=== PATIENT | female | born 1985 | race Hispanic/Latino ===

== ENCOUNTER 2021-05-13 07:21 | Inpatient (IN) | payer OTHER ==
[2021-05-06 09:42] LABS: BASOPHILS % (AUTO) 0.3 % (0.0-5.0); EOSINOPHILS % (AUTO) 1.3 % (0.0-8.0); HEMATOCRIT 40.3 % (36-48); LYMPHOCYTES % (AUTO) 29.7 % (21.0-51.0); MEAN CORPUSCULAR HEMOGLOBIN 29.2 pg (27.0-33.0); MEAN CORPUSCULAR VOLUME 91.2 fL (79-99); MONOCYTES % (AUTO) 7.9 % (3.0-13.0); NEUTROPHILS % (AUTO) 60.6 % (40.0-77.0); PLATELET COUNT (AUTO) 285 K/uL (130-400); RED BLOOD CELL COUNT(AUTO) 4.42 MIL/uL (4.00-5.50); RED CELL DISTRIBUTION WIDTH 12.9 % (11.0-15.5); WHITE BLOOD COUNT (AUTO) 6.1 K/uL (4.8-10.8)
[2021-05-06 10:12] LABS: CREATININE 0.7 mg/dL (0.5-1.5); POTASSIUM 3.9 mmol/L (3.5-5.1)
[2021-05-12 15:09] VITALS: BP 135/67
[~2021-05-13] VITALS: Ht 167.6 cm; Wt 109.4 kg
[2021-05-13] VITALS (24 sets, daily range): BP systolic 112–162; BP diastolic 62–88
[2021-05-13] MEDS ORDERED: LACTATED RINGERS 1000ML 1,000 ML IV ONE (07:53)
[2021-05-13] MEDS: CEFAZOLIN SODIUM 1 GM VIAL IVP SCH ×2 (08:00→08:40)
[2021-05-13] MEDS ORDERED: BUPIVACAINE/PF 0.5% 30ML VIAL ONE (08:04)
[2021-05-13] MEDS ORDERED: MIDAZOLAM HCL 1 MG/ML 2ML VIAL ONE (08:09)
[2021-05-13] MEDS ORDERED: LIDOCAINE HCL MPF 1% 5ML VIAL ONE (08:23)
[2021-05-13] MEDS ORDERED: PROPOFOL 10 MG/ML 20ML VIAL IV ONE (08:23)
[2021-05-13] MEDS ORDERED: ROCURONIUM 10MG/1ML SYR 10 MG/ML ML ONE (08:24)
[2021-05-13] MEDS ORDERED: FENTANYL CITRATE PF 50 MCG/1 ML 2ML VIAL ONE (08:24)
[2021-05-13] MEDS ORDERED: MORPHINE 5 MG/ML VIAL (5MG OR GREATER DOSE) IVP PRN (10:00)
[2021-05-13] MEDS ORDERED: METOCLOPRAMIDE 10 MG/2 ML VIAL ONE ×2 (10:13→10:51)
[2021-05-13] MEDS ORDERED: DEXAMETHASONE SOD PHOSPHATE 10MG/ML 1ML VIAL ONE (10:13)
[2021-05-13] MEDS ORDERED: ONDANSETRON 4MG INJ ONE ×2 (10:14→10:42)
[2021-05-13] MEDS ORDERED: MEPERIDINE-PF 25 MG/ML SYG ONE ×2 (10:14→10:53)
[2021-05-13] MEDS: MORPHINE 2 MG SYG IVP PRN ×2 (12:29→17:23)
[2021-05-13] MEDS: ONDANSETRON 4MG INJ IVP PRN ×2 (12:34→17:27)
[2021-05-13] MEDS: LACTATED RINGERS 1000ML 1,000 ML IV SCH ×2 (12:41→20:53)
[2021-05-13] MEDS: KETOROLAC 30MG VIAL (30MG/ML) IM PRN ×2 (15:15→20:59)
[2021-05-13] MEDS: FAMOTIDINE 20MG VIAL IV SCH (20:54)
[2021-05-13] MEDS: ENOXAPARIN SODIUM 30 MG/0.3 ML SQ SCH (21:03)
[2021-05-14] MEDS: ONDANSETRON 4MG INJ IVP PRN ×2 (01:31→09:16)
[2021-05-14] MEDS: MORPHINE 2 MG SYG IVP PRN (01:46)
[2021-05-14 02:57] VITALS: BP 127/87
[2021-05-14] MEDS: LACTATED RINGERS 1000ML 1,000 ML IV SCH ×3 (04:26→21:12)
[2021-05-14] MEDS: KETOROLAC 30MG VIAL (30MG/ML) IM PRN ×3 (04:29→20:49)
[2021-05-14 04:44] LABS: BASOPHILS % (AUTO) 0.1 % (0.0-5.0); HEMATOCRIT 39.7 % (36-48); LYMPHOCYTES % (AUTO) 8.6 % (21.0-51.0); MEAN CORPUSCULAR HEMOGLOBIN 28.8 pg (27.0-33.0); MEAN CORPUSCULAR HGB CONC 32.2 g/dL (32.0-36.0); MEAN CORPUSCULAR VOLUME 89.4 fL (79-99); MONOCYTES % (AUTO) 6.7 % (3.0-13.0); NEUTROPHILS % (AUTO) 84.2 % (40.0-77.0); PLATELET COUNT (AUTO) 270 K/uL (130-400); RED BLOOD CELL COUNT(AUTO) 4.44 MIL/uL (4.00-5.50); RED CELL DISTRIBUTION WIDTH 12.5 % (11.0-15.5); WHITE BLOOD COUNT (AUTO) 12.6 K/uL (4.8-10.8)
[2021-05-14 04:54] LABS: CREATININE 0.7 mg/dL (0.5-1.5); POTASSIUM 3.8 mmol/L (3.5-5.1)
[2021-05-14 07:18] VITALS: BP 146/77
[2021-05-14] MEDS: FAMOTIDINE 20MG VIAL IV SCH ×2 (09:10→21:00)
[2021-05-14] MEDS: ENOXAPARIN SODIUM 30 MG/0.3 ML SQ SCH ×2 (10:43→21:19)
[2021-05-14 11:32] VITALS: BP 122/65
[2021-05-14] MEDS ORDERED: SIMETHICONE 80 MG TAB.CHEW PO SCH (12:15)
[2021-05-14] MEDS ORDERED: PROMETHAZINE HCL 25 MG/ML 1ML AMPULE IM PRN (12:30)
[2021-05-14] MEDS ORDERED: MEPERIDINE-PF 25 MG/ML SYG IVP PRN (12:30)
[2021-05-14] MEDS: SIMETHICONE 40 MG/0.6 ML PO PRN ×2 (12:59→19:59)
[2021-05-14 15:22] VITALS: BP 144/74
[2021-05-14 19:42] VITALS: BP 127/70
[2021-05-14] MEDS ORDERED: PANTOPRAZOLE 40 MG/VIAL ONE (22:09)
[2021-05-14 23:42] VITALS: BP 114/59
[2021-05-15 03:30] VITALS: BP 134/70
[2021-05-15] MEDS: KETOROLAC 30MG VIAL (30MG/ML) IM PRN (03:36)
[2021-05-15] MEDS: SIMETHICONE 40 MG/0.6 ML PO PRN ×2 (03:45→10:07)
[2021-05-15 04:11] LABS: BASOPHILS % (AUTO) 0.2 % (0.0-5.0); EOSINOPHILS % (AUTO) 0.3 % (0.0-8.0); HEMATOCRIT 36.4 % (36-48); LYMPHOCYTES % (AUTO) 27.6 % (21.0-51.0); MEAN CORPUSCULAR HEMOGLOBIN 28.7 pg (27.0-33.0); MEAN CORPUSCULAR HGB CONC 32.1 g/dL (32.0-36.0); MEAN CORPUSCULAR VOLUME 89.4 fL (79-99); NEUTROPHILS % (AUTO) 63.4 % (40.0-77.0); PLATELET COUNT (AUTO) 252 K/uL (130-400); RED BLOOD CELL COUNT(AUTO) 4.07 MIL/uL (4.00-5.50); RED CELL DISTRIBUTION WIDTH 12.9 % (11.0-15.5); WHITE BLOOD COUNT (AUTO) 8.8 K/uL (4.8-10.8)
[2021-05-15 04:39] LABS: CREATININE 0.7 mg/dL (0.5-1.5); POTASSIUM 3.5 mmol/L (3.5-5.1)
[2021-05-15] MEDS: LACTATED RINGERS 1000ML 1,000 ML IV SCH (06:30)
[2021-05-15 07:22] VITALS: BP 103/66
[2021-05-15] MEDS: FAMOTIDINE 20MG VIAL IV SCH (09:00)
[2021-05-15] MEDS: ENOXAPARIN SODIUM 30 MG/0.3 ML SQ SCH (10:07)
[2021-05-15] MEDS ORDERED: ACETAMINOPHEN 325 MG/10.15ML UDCUP PO ONE ×2 (13:00→13:30)
[2021-05-15] MEDS ORDERED: ACETAMINOPHEN 500 MG TABLET PO ONE (13:00)
[2021-05-15] MEDS ORDERED: PANTOPRAZOLE 40 MG TAB DR PO SCH (13:55)
== END 2021-05-15 16:30 | disposition home or self-care (01) | DRG 621 ==
LOC: DAHIP 07:21 → EDSTATUS 08:00 → WSH 12:21
PROVIDERS: ADMIT Surgery; ATTEND Surgery
PROC: 0DB64Z3 Excision of Stomach, Percutaneous Endoscopic Approach, Vertical (ICD-10-PCS; principal; 2021-05-13 08:27)
DX: E66.01 Morbid (severe) obesity due to excess calories (principal); Z20.822 Contact with and (suspected) exposure to COVID-19; Z68.38 Body mass index [BMI] 38.0-38.9, adult; Z86.32 Personal history of gestational diabetes
CPT/HCPCS: 36415; 80048; 84703; 85025; 87635; C9113; G0378; J0690; J1100; J1650; J1885; J2175; J2250; J2405; J2550; J2704; J2765; J3010; J3490; J7030; J7120